=== PATIENT | female | born 1970 | race African-American/Black ===

== ENCOUNTER 2018-08-03 15:40 | Emergency (ER) | payer MEDICAID, OTHER ==
[~2018-08-03] VITALS: Ht 170.2 cm; Wt 134.7 kg
[~2018-08-03 15:40] MED LIST: ACETAMINOPHEN-1 EAC1 ORAL; CYCLOBENZAPRINE10 MG ORAL; NITROFURANTOIN100 M2 ORAL
[2018-08-03] MEDS ORDERED: METFORMIN HCL500 M4 ORAL (15:50)
[2018-08-03] MEDS ORDERED: GLIMEPIRIDE2 MG ORAL (15:50)
--- NOTE | 2018-08-03 16:13 | NUR ---
ED Nurse Note: Pt has been having dorsal neck pain that radiates upward x 10 days. Pain 7/10 catalina. No recent injury. Aox4, VSS catalina. Will cont to monitor.
[2018-08-03 16:15] VITALS: BP 131/79
--- NOTE | 2018-08-03 16:26 | Emergency Room Report ---
History of Present Illness General Chief Complaint: Headache Source: Patient Present Illness HPI 48-year-old female patient presents ER complaining of left-sided neck pain the past 3 days. Contrary to triage note, patient not complaining of headache for the past 10 days. Patient denies acute injury or trauma however states that she "thinks" she slept wrong. Reports pain worse with movement. Reports that she normally sleeps on her belly and on her side. Denies history of neck problems in the past. Denies fever, chest pain, shortness of breath. Denies headache. Denies pain radiating down the arms. Denies other aggravating factors. Denies photophobia or phonophobia. Patient currently being seen in the ER with her son who is being seen for different symptoms. Allergies: Coded Allergies: ACETAMINOPHEN (Unverified Allergy, Unknown, 07/20/14) CODEINE (Unverified Allergy, Unknown, 07/20/14) Patient History Past Medical History: see triage record : 5 Reviewed Nursing Documentation: PMH: Agreed; PSxH: Agreed Nursing Documentation-PMH Past Medical History: No History, Except For Hx Diabetes: Yes Review of Systems All Other Systems: negative except mentioned in HPI Physical Exam Vital Signs Date Time Temp Pulse Resp B/P (MAP) Pulse Ox O2 Delivery O2 Flow Rate FiO2 08/03/18 15:47 98.1 98 17 130/75 96 Room Air Sp02 EP Interpretation: reviewed, normal General Appearance: well appearing, no apparent distress, alert, GCS 15, non- toxic Head: normocephalic, atraumatic Eyes: bilateral eye normal inspection, bilateral eye PERRL ENT: hearing grossly normal, normal pharynx, no angioedema, normal voice, TMs + canals normal, uvula midline, moist mucus membranes Neck: full range of motion, no bony tend - No bony step-off, tender lateral Respiratory: lungs clear, normal breath sounds, no rhonchi, no respiratory distress, no accessory muscle use, no wheezing, speaking full sentences Cardiovascular #1: regular rate, rhythm, no edema Cardiovascular #2: 2+ radial (R), 2+ radial (L) Gastrointestinal: non tender, soft, no mass, non-distended, no guarding, no rebound Musculoskeletal: back normal, digits/nails normal, gait/station normal, normal range of motion, non-tender Neurologic: alert, oriented x3, responsive, silverer III-XII nml as tested, motor strength/tone normal, sensory intact, cerebellar normal, normal gait, speech normal Skin: no rash Medical Decision Making PA Attestation Dr. Gallo is my supervising Physician whom patient management has been discussed with. Diagnostic Impression: Primary Impression: Neck sprain ER Course Pt. presents to the ED c/o neck pain times 3 days. Ddx considered but are not limited to fracture, sprain, strain, contusion, dislocation. No erythema, no warmth to touch, no fever, nontoxic appearing, low suspicion for septic joint. Soft compartments, no pulselessness, no pallor, no paresthesias, low suspicion for compartment syndrome at this time. No fever, no meningismus, low suspicion for meningitis. Vital signs: are WNL, pt. is afebrile Ordered X-ray and pain medication. ER COURSE Provided with pain medication, muscle relaxant lidocaine patch. Offered x-ray and/or CT of neck, patient declined. Patient instructed on RICE method: rest, ice, compression, elevation. Patient instructed on rest, ice and heat. Contact information for orthopedic urgent care provided, follow-up with urgent care if unable to followup with primary care provider and get referral to phlebotomy specialist. Followup with primary care provider. Discuss referral to ortho/pain management/ PT as needed. Discuss further imaging with MRI/CT as needed. Patient reports pain symptoms improved while in the ER. ER precautions given. DISCHARGE: At this time pt. is stable for d/c to home. Patient is resting comfortably, in no acute distress, nontoxic appearing, talking without difficulty. Will provide printed patient care instructions, and any necessary prescriptions. Patient instructed to follow with primary care provider in 3 - 5 days and to request further follow-up as needed. Care plan and follow up instructions have been discussed with the patient prior to discharge. Take medications as directed. Patient questions asked and answered. Patient reports understanding and agreement to treatment plan. ER precautions given, patient instructed to return to ER immediately for any new or worsening of symptoms. - Please note that this Emergency Department Report was dictated using [employer] technology software, occasionally this can lead to erroneous entry secondary to interpretation by the dictation equipment. Last Vital Signs Date Time Temp Pulse Resp B/P (MAP) Pulse Ox O2 Delivery O2 Flow Rate FiO2 08/03/18 16:15 98.1 79 20 131/79 96 Room Air Status: improved Disposition: HOME, SELF-CARE Condition: Stable Scripts Methocarbamol* (ROBAXIN*) 500 Mg Tablet 500 MG PO TID, #21 TAB 0 Refills Prov: Rl Velazquez 08/03/18 Ibuprofen* (MOTRIN*) 600 Mg Tablet 600 MG ORAL Q8H PRN for For Pain, #30 TAB 0 Refills Prov: Rl Velazquez 08/03/18 Lidocaine (Lidocaine) 1 Each Adh..patch 5 % TP DAILY for 7 Days, #7 PATCH Prov: Rl Velazquez 08/03/18 Patient Instructions: Cervical Sprain, [id number] Additional Instructions: Patient instructed to follow up with primary care provider 3-5 and discuss further referral and imaging at that time. Patient instructed on rest, ice and heat. Do not take muscle relaxant prior to drinking, driving, or operating heavy machinery. Take medications as directed. Patient questions asked and answered. ER precautions given, patient instructed to return to ER immediately for any new or worsening of symptoms. [facility] [address] [facility] [address] [facility], [id number] [email or web address] Rl Velazquez Aug 03, 2018 16:26
[2018-08-03] MEDS ORDERED: Methocarbamol 500mg tab ORAL ONE (16:30)
[2018-08-03] MEDS ORDERED: ROBAXIN500 MG PO (17:08)
[2018-08-03] MEDS ORDERED: IBUPROFEN600 MG ORAL (17:08)
[2018-08-03] MEDS ORDERED: LIDOCAINE700 M1 TP (17:08)
[2018-08-03 17:15] VITALS: BP 131/79
--- NOTE | 2018-08-03 17:15 | NUR ---
ER DISCHARGE NOTE: Patient is cleared to be discharged per ERMD, pt is aox4, on room air, with stable vital signs. pt was given dc and prescription instructions, pt was able to verbalize understanding, pt id band removed without complications. pt is able to ambulate with steady gait. pt took all belongings.
--- NOTE | 2018-08-03 17:16 | NUR ---
ED Nurse Note: patient is in room 9 staying with her family member.
== END 2018-08-03 17:15 | disposition home or self-care (01) ==
LOC: EMR 16:25
DX: S13.9XXA Sprain of joints and ligaments of unspecified parts of neck, initial encounter (principal); X58.XXXA Exposure to other specified factors, initial encounter; Y92.9 Unspecified place or not applicable; E11.9 Type 2 diabetes mellitus without complications; Z88.6 Allergy status to analgesic agent; Z88.5 Allergy status to narcotic agent
CPT/HCPCS: 99283

== ENCOUNTER 2018-09-17 22:08 | Emergency (ER) | payer OTHER ==
[~2018-09-17] VITALS: Ht 170.2 cm; Wt 134.7 kg
[~2018-09-17 22:08] MED LIST changes: +GLIMEPIRIDE2 MG ORAL; +IBUPROFEN600 MG ORAL; +LIDOCAINE700 M1 TP; +METFORMIN HCL500 M4 ORAL; +ROBAXIN500 MG PO
[2018-09-17 22:12] VITALS: BP 163/76
[2018-09-17] MEDS ORDERED: OMEGA-31000 M1 PO (22:19)
[2018-09-17] MEDS ORDERED: LOSARTAN POTASS25 MG ORAL (22:19)
--- NOTE | 2018-09-17 22:35 | Emergency Room Report ---
History of Present Illness General Chief Complaint: Lower Extremity Injury Source: Patient Present Illness HPI This is a 48-year-old female with a history of diabetes. She presents with chief complaint of left foot pain and swelling. Onset for about a week. Pain is on the dorsum of the foot. There is edema and redness. No fever chills but no nausea no vomiting. A week prior to this, she had same thing according to her right foot. Now it moved to the left foot. Pain is 9 out of 10. Worse with bearing weight. Allergies: Coded Allergies: CODEINE (Unverified Allergy, Unknown, 07/20/14) Patient History Past Medical History: see triage record, old chart reviewed, DM Past Surgical History: other Pertinent Family History: none Social History: Denies: smoking Now: No Immunizations: other Reviewed Nursing Documentation: PMH: Agreed; PSxH: Agreed Nursing Documentation-PMH Hx Diabetes: Yes Review of Systems Eye: Denies: eye pain, blurred vision ENT: Denies: ear pain, nose congestion, throat swelling Respiratory: Denies: cough, shortness of breath Cardiovascular: Denies: chest pain, palpitations Gastrointestinal: Denies: abdominal pain, diarrhea, nausea, vomiting Musculoskeletal: Reports: joint pain, joint swelling; Denies: back pain Skin: Denies: rash Neurological: Denies: headache, numbness Endocrine: Denies: increased thirst, increased urine Hematologic/Lymphatic: Denies: easy bruising All Other Systems: negative except mentioned in HPI Physical Exam Vital Signs Date Time Temp Pulse Resp B/P (MAP) Pulse Ox O2 Delivery O2 Flow Rate FiO2 09/17/18 22:12 98.2 102 20 95 Room Air vitals normal Sp02 EP Interpretation: reviewed, normal General Appearance: well appearing, no apparent distress, alert Head: normocephalic, atraumatic Eyes: bilateral eye PERRL, bilateral eye EOMI ENT: hearing grossly normal, normal pharynx Neck: full range of motion, supple, no meningismus Respiratory: chest non-tender, lungs clear, normal breath sounds Cardiovascular #1: regular rate, rhythm, no murmur Gastrointestinal: normal bowel sounds, non tender, no mass, no organomegaly, no bruit, non-distended Musculoskeletal: back normal, normal range of motion, other - Left foot: There is tenderness and edema to the base of the fifth metatarsal bone. There is some mild warmth and redness to that area. This was pedis pulse is normal. Ankle stable. Psychiatric: mood/affect normal Skin: warm/dry Medical Decision Making Diagnostic Impression: Primary Impression: Gouty arthritis of left foot Additional Impression: Hyperglycemia due to type 2 diabetes mellitus Qualified Codes: E11.65 - Type 2 diabetes mellitus with hyperglycemia ER Course Patient presents with pain and inflammation of her left foot. Uric acid is elevated. This is probably gouty arthritis. No evidence of septic joint. No evidence of cellulitis. Glucose is elevated. She said that her hemoglobin A1c is 7.9 on last check. It has been as high as 11. Other X-Ray Diagnostic Results Other X-Ray Diagnostic Results : X-Ray ordered: Left foot x-rays # of Views/Limited Vs Complete: 3 View Indication: Pain EP Interpretation: Yes Interpretation: no dislocation, no soft tissue swelling, no fractures Impression: No acute disease Electronically Signed by: Erick Saxena MD Last Vital Signs Date Time Temp Pulse Resp B/P (MAP) Pulse Ox O2 Delivery O2 Flow Rate FiO2 09/17/18 22:12 98.2 102 20 95 Room Air Status: improved Disposition: HOME, SELF-CARE Condition: Stable Scripts Indomethacin (Indocin) 75 Mg Capsule.er 75 MG ORAL Q8HR, #30 CAP Prov: Erick Saxena MD 09/18/18 Hydrocodone/Acetaminophen 5-325* (HYDROCODONE/ACETAMINOPHEN 5-325*) 1 Each Tablet 1 TAB ORAL Q6H PRN for For Pain, #20 TAB 0 Refills Prov: Erick Saxena MD 09/18/18 Additional Instructions: Elevate foot. Follow-up with your doctor in 7 days. Take your diabetes medication. Return if symptom worsen. Erick Saxena MD September 17, 2018 22:35
[2018-09-17] MEDS ORDERED: Morphine Sulfate 4mg/ml Inj (IV USE ONLY) IVP ONE (22:45)
[2018-09-17] MEDS ORDERED: HYDROcodone/Acetamin 5/325 tab ORAL ONE (22:45)
[2018-09-17] MEDS ORDERED: Ketorolac 30mg Inj IV ONE (22:45)
[2018-09-17 23:25] LABS: BASOPHILS % (AUTO) 1.1 % (0.0-2.0); EOSINOPHILS % (AUTO) 3.7 % (0.0-3.0); HEMATOCRIT 37.7 % (37.0-47.0); HEMOGLOBIN 12.6 G/DL (12.0-16.0); LYMPHOCYTES % (AUTO) 20.6 % (20.0-45.0); MEAN CORPUSCULAR VOLUME 87 FL (80-99); MONOCYTES % (AUTO) 4.4 % (1.0-10.0); NEUTROPHILS % (AUTO) 70.2 % (45.0-75.0); PLATELET COUNT 277 K/UL (150-450); RED BLOOD COUNT 4.33 M/UL (4.20-5.40); RED CELL DISTRIBUTION WIDTH 11.4 % (11.6-14.8); WHITE BLOOD COUNT 7.8 K/UL (4.8-10.8)
[2018-09-17 23:42] LABS: ANION GAP 12 mmol/L (5-15); BLOOD UREA NITROGEN 21 mg/dL (7-18); CALCIUM 9.3 MG/DL (8.5-10.1); CARBON DIOXIDE 25 MMOL/L (21-32); CHLORIDE 100 MMOL/L (98-107); CREATININE 1.6 MG/DL (0.55-1.30); POTASSIUM 3.9 MMOL/L (3.5-5.1); SODIUM 137 MMOL/L (136-145)
[2018-09-18] MEDS ORDERED: Insulin Human Regular 100units/ml 3ml IV ONE
[2018-09-18] MEDS ORDERED: INDOCIN75 MG ORAL (00:13)
[2018-09-18] MEDS ORDERED: HYDROCODON-ACE1 EA15 ORAL (00:13)
--- NOTE | 2018-09-18 14:57 | Diagnostic Imaging Report ---
Indication: Left foot pain Technique: 3 views left foot Comparison: none Findings: No acute fractures. No dislocations. The joint spaces are preserved. There are small plantar and calcaneal spurs. Impression: No acute process
== END 2018-09-18 00:53 | disposition home or self-care (01) ==
LOC: EMR 22:51
DX: M10.9 Gout, unspecified (principal); E11.65 Type 2 diabetes mellitus with hyperglycemia; Z88.6 Allergy status to analgesic agent
CPT/HCPCS: 36415; 73630; 80048; 82962; 84550; 85025; 96374; 96375; 99284; J1815; J1885; J2270

== ENCOUNTER 2019-04-30 16:28 | Inpatient (IN) | payer OTHER ==
[~2019-04-30] VITALS: Ht 170.2 cm; Wt 127.0 kg
[~2019-04-30 16:28] MED LIST changes: +HYDROCODON-ACE1 EA15 ORAL; +INDOCIN75 MG ORAL; +LOSARTAN POTASS25 MG ORAL; +OMEGA-31000 M1 PO
--- NOTE | 2019-04-30 16:36 | NUR ---
ED Nurse Note: Patient arrived to ED from home complaining of flu-like s/s x 1 week. Patient states she has not eaten for 3 days d/t no appetite. Patient has has a productive cough, n/v, and diarrhea. Patient AxO x 4. Patient on the lithograph designer, bed in lowest position. Skin intact. Blood and urine sent to lab.
[2019-04-30 16:40] VITALS: BP 84/58
--- NOTE | 2019-04-30 16:53 | Emergency Room Report ---
History of Present Illness General Chief Complaint: Generalized Weakness Source: Patient Present Illness HPI Disclaimer: Please note that this report is being documented using [employer] technology. This can lead to erroneous entry secondary to incorrect interpretation by the dictating instrument. HPI: 48-year-old female with history of diabetes, obesity, hyperlipidemia presents for evaluation of generalized weakness. She notes several weeks of decreased energy, nonproductive cough ever since returning from [place] in late March. She reported a cough and cold which she recovered from about a week ago but over the past 2 days has had persistent watery diarrhea and nonbloody emesis. She has no appetite and reports intermittent nausea. Occasional nonproductive cough. Reports chest pain with coughing but not without. Patient found to be hypotensive in triage. She reports lightheadedness at rest and while ambulating PMH: Obesity, hyperlipidemia, diabetes PSH: Denies Allergies: Codeine Social Hx: Denies alcohol, drug use Allergies: Coded Allergies: CODEINE (Unverified Allergy, Unknown, 07/20/14) Nursing Documentation-PMH Past Medical History: No History, Except For Hx Diabetes: Yes Review of Systems All Other Systems: negative except mentioned in HPI Physical Exam Vital Signs Date Time Temp Pulse Resp B/P (MAP) Pulse Ox O2 Delivery O2 Flow Rate FiO2 04/30/19 16:33 99.7 112 18 84/58 (67) 97 Room Air General: Awake and alert, no acute distress HEENT: NC/AT. EOMI. Neck: Supple, trachea midline Chest Wall: Tender to palpation with no deformity Cardiovascular: Tachycardic. S1 and S2 normal. No murmur appreciated Resp: Normal work of breathing. No cough, wheezing or crackles appreciated Abdomen: Morbidly obese abdomen. Abdomen is soft, nondistended. Nontender Skin: Intact. No abrasions, laceration or rash over the exposed skin MSK: Normal tone and bulk. Moving all extremities. No obvious deformity. Neuro: Awake and alert. Mentating appropriately. Procedures Critical Care Time Critical Care Time Total critical care time: Approximately 45 minutes Due to a high probability of clinically significant, life threatening deterioration, the patient required the highest level of preparedness to intervene emergently and I personally spent this critical care time directly and personally managing the patient. This critical care time included obtaining a history, examining the patient, pulse oximetry, ordering and reviewing studies , ordering treatments, evaluating response to treatment and updating management plan as needed, frequent reassessment and discussion with other providers as well as arranging for ultimate disposition. This critical to care time was performed to assess and manage the high probability of life-threatening deterioration that could result in multiorgan failure. This critical care time is separate from the separately billable procedures and treating other patients. Medical Decision Making Diagnostic Impression: Primary Impression: Dehydration Additional Impressions: Influenza B ENDY (acute kidney injury) Sepsis UTI (urinary tract infection) ER Course 48-year-old female presents for evaluation of generalized weakness, cough, diarrhea and vomiting. She was found hypotensive in triage with systolic pressures in the 80s. She is tachycardic and on second oral temperature she is febrile. Differential includes was not limited to sepsis, viral syndrome, pneumonia, gastroenteritis, hyperglycemia, electrolyte abnormality, anemia, ACS , malnutrition, DKA, HHS. Start broad metabolic and infectious work-up. Start IV fluids at 30 cc/kg, lactate, blood cultures, EKG, chest x-ray Laboratory Tests Test 04/30/19 17:00 04/30/19 17:50 04/30/19 20:07 White Blood Count 3.1 K/UL (4.8-10.8) L Red Blood Count 4.89 M/UL (4.20-5.40) Hemoglobin 14.9 G/DL (12.0-16.0) Hematocrit 40.9 % (37.0-47.0) Mean Corpuscular Volume 84 FL (80-99) Mean Corpuscular Hemoglobin 30.5 PG (27.0-31.0) Mean Corpuscular Hemoglobin Concent 36.5 G/DL (32.0-36.0) H Red Cell Distribution Width 9.9 % (11.6-14.8) L Platelet Count 224 K/UL (150-450) Mean Platelet Volume 6.8 FL (6.5-10.1) Neutrophils (%) (Auto) 58.8 % (45.0-75.0) Lymphocytes (%) (Auto) 31.4 % (20.0-45.0) Monocytes (%) (Auto) 7.8 % (1.0-10.0) Eosinophils (%) (Auto) 0.3 % (0.0-3.0) Basophils (%) (Auto) 1.8 % (0.0-2.0) Sodium Level 136 MMOL/L (136-145) Potassium Level 4.5 MMOL/L (3.5-5.1) Chloride Level 99 MMOL/L (98-107) Carbon Dioxide Level 22 MMOL/L (21-32) Anion Gap 15 mmol/L (5-15) Blood Urea Nitrogen 37 mg/dL (7-18) H Creatinine 2.8 MG/DL (0.55-1.30) H Estimate Glomerular Filtration Rate 21.7 mL/min (>60) Glucose Level 339 MG/DL (74-106) H Lactic Acid Level 2.20 mmol/L (0.4-2.0) H 0.90 mmol/L (0.66-2.22) Calcium Level 8.7 MG/DL (8.5-10.1) Total Bilirubin 0.5 MG/DL (0.2-1.0) Aspartate Amino Transferase (AST) 27 U/L (15-37) Alanine Aminotransferase (ALT) 27 U/L (12-78) Alkaline Phosphatase 77 U/L (46-116) Total Creatine Kinase 129 U/L (26-308) Troponin I 0.005 ng/mL (0.000-0.056) Total Protein 8.7 G/DL (6.4-8.2) H Albumin 3.6 G/DL (3.4-5.0) Globulin 5.1 g/dL Albumin/Globulin Ratio 0.7 (1.0-2.7) L Urine Color Yellow Urine Appearance Cloudy Urine pH 5 (4.5-8.0) Urine Specific [place] 1.015 (1.005-1.035) Urine Protein 3+ (NEGATIVE) H Urine Glucose (UA) 4+ (NEGATIVE) H Urine Ketones Negative (NEGATIVE) Urine Blood 2+ (NEGATIVE) H Urine Nitrite Negative (NEGATIVE) Urine Bilirubin Negative (NEGATIVE) Urine Urobilinogen Normal MG/DL (0.0-1.0) Urine Leukocyte Esterase 2+ (NEGATIVE) H Urine RBC 2-4 /HPF (0 - 2) H Urine WBC Tntc /HPF (0 - 2) H Urine Squamous Epithelial Cells Many /LPF (NONE/OCC) H Urine Bacteria Many /HPF (NONE) H Microbiology Date/Time Source Procedure Growth Status 04/30/19 17:15 Nasal Nares - Final Complete 04/30/19 17:15 Nasal Nares - Final Complete EKG Diagnostic Results EKG Time: 16:54 Rate: normal Rhythm: NSR ST Segments: no acute changes Other Impression Sinus rhythm, normal axis, normal intervals, no ST segment changes Rhythm Strip Diag. Results Rhythm Strip Time: 16:54 EP Interpretation: yes Rate: 99 Rhythm: NSR, no PVC's, no ectopy Chest X-Ray Diagnostic Results Chest X-Ray Diagnostic Results : Chest X-Ray Ordered: Yes # of Views/Limited/Complete: 1 View Indication: Other - Cough EP Interpretation: Yes Interpretation: no consolidation, no effusion, no pneumothorax Impression: No acute disease Electronically Signed by: Electronically signed by Dr. Robbin Sarah Reevaluation Time: 17:51 Last Vital Signs Date Time Temp Pulse Resp B/P (MAP) Pulse Ox O2 Delivery O2 Flow Rate FiO2 04/30/19 16:33 99.7 112 18 84/58 (67) 97 Room Air Reevaluation Impression X-ray is somewhat difficult to interpret due to the patient's body habitus but I do not find any obvious consolidation. Patient's blood pressures are improving with IV fluids. Heart rate now within normal limits. She has tested positive for influenza B. Tylenol and oseltamavir have been given. She has a leukopenia and an acute kidney injury with an elevated creatinine of 2.8. Lactate elevated at 2.2. Receiving her sepsis level fluids currently. Repeat lactate pending. Will require admission. 191: Urinalysis is returned positive for an acute infection. Will treat with ceftriaxone. Awaiting approval for admission per her insurance plan. Vital signs of stabilized. Disposition: ADMITTED INPATIENT Condition: Serious Robbin Sarah MD Apr 30, 2019 16:53
[2019-04-30] MEDS ORDERED: SODIUM CHLORIDE IVLG ONE (17:15)
[2019-04-30 17:20] VITALS: BP 77/54
[2019-04-30 17:20] LABS: HEMATOCRIT 40.9 % (37.0-47.0); HEMOGLOBIN 14.9 G/DL (12.0-16.0); MEAN CORPUSCULAR VOLUME 84 FL (80-99); PLATELET COUNT 224 K/UL (150-450); RED BLOOD COUNT 4.89 M/UL (4.20-5.40); RED CELL DISTRIBUTION WIDTH 9.9 % (11.6-14.8); WHITE BLOOD COUNT 3.1 K/UL (4.8-10.8)
--- NOTE | 2019-04-30 17:24 | Diagnostic Imaging Report ---
EXAM: XR Chest, 1 View CLINICAL HISTORY: COUGH TECHNIQUE: Frontal view of the chest. COMPARISON: No relevant prior studies available. FINDINGS: Lungs: Accentuation of bronchovascular markings. No confluent consolidation. Pleural space: Unremarkable. No pneumothorax. Heart: Mild cardiomegaly. Mediastinum: Unremarkable. Bones/joints: No acute fracture. IMPRESSION: Accentuation of bronchovascular markings.
[2019-04-30 17:30] LABS: BASOPHILS % (AUTO) 1.8 % (0.0-2.0); EOSINOPHILS % (AUTO) 0.3 % (0.0-3.0); LYMPHOCYTES % (AUTO) 31.4 % (20.0-45.0); MONOCYTES % (AUTO) 7.8 % (1.0-10.0); NEUTROPHILS % (AUTO) 58.8 % (45.0-75.0)
[2019-04-30] MEDS ORDERED: Acetaminophen 500mg (ES) tab ORAL ONE (17:30)
[2019-04-30 17:37] LABS: ANION GAP 15 mmol/L (5-15); BLOOD UREA NITROGEN 37 mg/dL (7-18); CALCIUM 8.7 MG/DL (8.5-10.1); CARBON DIOXIDE 22 MMOL/L (21-32); CHLORIDE 99 MMOL/L (98-107); CREATININE 2.8 MG/DL (0.55-1.30); POTASSIUM 4.5 MMOL/L (3.5-5.1); SODIUM 136 MMOL/L (136-145)
[2019-04-30 17:41] LABS: ALANINE AMINOTRANSFERASE 27 U/L (12-78); ALBUMIN 3.6 G/DL (3.4-5.0); ALBUMIN/GLOBULIN RATIO 0.7 (1.0-2.7); ALKALINE PHOSPHATASE 77 U/L (46-116); ASPARTATE AMINO TRANSFERASE 27 U/L (15-37); BILIRUBIN,TOTAL 0.5 MG/DL (0.2-1.0); CREATINE KINASE 129 U/L (26-308)
[2019-04-30 18:00] VITALS: BP 102/68
[2019-04-30] MEDS ORDERED: Oseltamivir 75mg cap ORAL ONE (18:00)
--- NOTE | 2019-04-30 18:00 | NUR ---
ED Nurse Note: Patient resting in bed. Dr. Sarah at bedside. Fluids infusing, as ordered. Patient states she feels a little better than when she arrived.
[2019-04-30 18:51] LABS: APPEARANCE,URINE CLOUDY; BILIRUBIN, URINE NEGATIVE (NEGATIVE); COLOR,URINE YELLOW; GLUCOSE, URINE (UA) 4+ (NEGATIVE); KETONES,URINE NEGATIVE (NEGATIVE); LEUKOCYTE ESTERASE ,URINE 2+ (NEGATIVE); NITRITE,URINE NEGATIVE (NEGATIVE); PH,URINE 5 (4.5-8.0); PROTEIN,URINE 3+ (NEGATIVE); UROBILINOGEN,URINE NORMAL MG/DL (0.0-1.0)
--- NOTE | 2019-04-30 19:02 | NUR ---
HAND-OFF: Report given to Oneida MESSINA.
[2019-04-30 19:29] VITALS: BP 108/68
[2019-04-30] MEDS ORDERED: cefTRIAXone 1 GM in NS 55 ML IVPB ONE (19:30)
--- NOTE | 2019-04-30 20:19 | NUR ---
ER Nurse Note: Pt stable, no signs of distress, RA. Pt oral temp 98.3F. Pt denies pain, dizziness, cough. Pt ambulated with steady gait to restroom, no difficulty voiding. Pt VSS. All orders completed per ERMD orders. Repeat lactate drawn and sent to lab; awaiting results. Report given to MAYURI Liu for continutiy of care.
[2019-04-30 21:00] VITALS: BP 110/72
--- NOTE | 2019-04-30 21:00 | NUR ---
ER Nurse Note: Pt arrived on tele unit. All belongings taken with family. Per pt, her belongings will be taken daughter at bedside. MAYURI Liu aware.
[2019-04-30 22:00] VITALS: BP 105/72
--- NOTE | 2019-04-30 22:00 | NUR ---
NURSE NOTES: Pt arrived on unit via gurney from ER. Got report from Oneida MESSINA. Denies any pain. Denies any n/v or SOB. Pt is fully alert and able to answer all of my questions. Pt is ambulatory but says she is still weak. No skin issues noted. VSS T:98.4 HR:78 R:18 BP:105/72 O2:96% on room air. cardiac monitor placed on pt running Sinus Rhythm on the monitor. Belongings list verified. Pt resting in bed comfortably. Bed in low and locked position, call light within reach, bedside table within reach. Continue to monitor. Orders given and placed by Dr. Green.
[2019-05-01] VITALS: BP 105/62
[2019-05-01 04:00] VITALS: BP 103/90
--- NOTE | 2019-05-01 07:10 | NUR ---
NURSE NOTES: Report received from MAYURI Zapata. Patient AOx4. In RA. Denies any pain or SOB. L H 20g IV running NS @ 100, site intact. Bed on lowest position, side rails upx2, brakes engaged. Call light within easy reach. Family at bed side.
--- NOTE | 2019-05-01 07:10 | NUR ---
HAND-OFF: Report given to Suzanna MESSINA.
[2019-05-01 08:00] VITALS: BP 110/68
[2019-05-01 08:48] LABS: HEMATOCRIT 37.1 % (37.0-47.0); HEMOGLOBIN 12.5 G/DL (12.0-16.0); MEAN CORPUSCULAR VOLUME 89 FL (80-99); PLATELET COUNT 158 K/UL (150-450); RED BLOOD COUNT 4.16 M/UL (4.20-5.40); RED CELL DISTRIBUTION WIDTH 11.2 % (11.6-14.8); WHITE BLOOD COUNT 2.2 K/UL (4.8-10.8)
[2019-05-01] MEDS: Cefepime HCl 1 GM in D5W 55 ML IVPB SCH (09:04)
[2019-05-01 09:22] LABS: ANION GAP 10 mmol/L (5-15); BLOOD UREA NITROGEN 34 mg/dL (7-18); CARBON DIOXIDE 24 MMOL/L (21-32); CHLORIDE 109 MMOL/L (98-107); CREATININE 1.7 MG/DL (0.55-1.30); POTASSIUM 4.2 MMOL/L (3.5-5.1); SODIUM 142 MMOL/L (136-145)
[2019-05-01 12:00] VITALS: BP 114/59
--- NOTE | 2019-05-01 13:52 | NUR ---
CASE MANAGEMENT: INITIAL REVIEW 48 YO F PRESENTED FROM HOME CC: COUGH, GEN WEAKNESS, CHEST CONGESTION, BACK PAIN X 3 WEEKS. PMHx: diabetes, obesity, hyperlipidemia presents for evaluation of generalized weakness. SI:HYPOTENSION. T 99.7 HR 112 B/P 84/58 SATS 97% ON RA WBC 3.1 BUN 37 CR 2.8 LACTIC ACID 2.2 influenza B (+) IS: NS BOLUS X2 TYLENOL PO X1 TAMIFLU PO X1 EKG HR 99 Sinus rhythm, normal axis, normal intervals, no ST segment changes CXR Impression: No acute disease PATIENT ADMITTED TO TELE 04/30/2019 @ 1810 DCP: PATIENT TO BE DISCHARGED TO HOME ONCE MEDICALLY CLEARED. 05/01/2019 SI:HYPOTENSION. T 98.1 HR 87 RR 18 B/P 114/59 SATS 96% ON RA WBC 2.2 CL 109 BUN 34 CR 1.7 GLU 147 CA 8 IS: NS @ 100 mL/HR TAMIFLU PO BID CEFEPIME IV QD TELE STATUS DCP: PATIENT TO BE DISCHARGED TO HOME ONCE MEDICALLY CLEARED. Addendum: 05/01/19 at 1632 by Henna Ruiz CM INTERMARVINAL
[2019-05-01 16:00] VITALS: BP 97/67
--- NOTE | 2019-05-01 19:45 | NUR ---
NURSE NOTES: Received report from MAYURI Briseno. Patient is awake, lying in semi hahn's; resting comfortably. A/Ox4. Able to make needs known with assistance. Denies pain at this time. No signs of acute distress noted. Checked IV site and flushed with ongoing IV fluid NS @ 100mls/hr. No erythema, bleeding or infiltration noted. Bed at lowest position, brakes on, siderailsx2. Call light within reach. Will continue to monitor.
--- NOTE | 2019-05-01 19:54 | NUR ---
HAND-OFF: Report given to MAYURI Aguillon. Patient in stable condition. Plan of care endorsed.
[2019-05-01 20:00] VITALS: BP 120/69
--- NOTE | 2019-05-01 20:15 | History and Physical Report ---
DATE OF ADMISSION: 04/30/2019 HISTORY OF PRESENT ILLNESS: The patient is a 48-year-old female admitted to the emergency room. The patient with history of diabetes, presents with generalized weakness, reduced energy, and a productive cough. The patient also reports chest pain with coughing and discomfort. The patient is seen and evaluated in the emergency room and noted to have evidence of leukopenia with x-ray essentially negative overall. The patient was admitted for further care and management. PAST MEDICAL HISTORY: Hyperlipidemia and diabetes. MEDICATIONS: Reviewed. ALLERGIES: Reviewed. SOCIAL HISTORY: Denies any alcohol use. Denies smoking. PHYSICAL EXAMINATION: GENERAL: A well-developed female, in no significant distress. VITAL SIGNS: Reviewed. Currently stable and off oxygen. Initially hypotensive. LUNGS: Clear. CARDIAC: S1, S2. Regular rate and rhythm. Initially was tachycardic. ABDOMEN: Soft, nontender, and nondistended. EXTREMITIES: No edema. LABORATORY DATA: Reviewed and notable for the leukopenia as described. IMPRESSION: 1. Dehydration. 2. Urinary tract infection. 3. History of diabetes. RECOMMENDATIONS: 1. IV hydration. 2. IV antibiotics. 3. Follow up cultures. 4. Consider ID evaluation. 5. Physical therapy evaluation. 6. Monitor white cell count for changes. 7. Consider hematological evaluation and white cell count if abnormality persists and discharge once stable. [place] M.D. DR: CHRISTOPHER JOB#: [id number] CC:
[2019-05-02] VITALS: BP 108/55
--- NOTE | 2019-05-02 00:42 | NUR ---
NURSE NOTES: Paged Dr. Green, for insulin sliding scale. Awaiting for callback.
--- NOTE | 2019-05-02 01:18 | NUR ---
NURSE NOTES: Resting throughout the night. No significant change of condition noted. Will continue to monitor.
[2019-05-02 04:00] VITALS: BP 122/59
--- NOTE | 2019-05-02 06:30 | NUR ---
NURSE NOTES: Paged Dr. Green for insulin sliding scale. Awaiting for callback.
--- NOTE | 2019-05-02 07:05 | NUR ---
NURSE NOTES: Per Dr. Green, insulin sliding scale resistant, pt eval, ID consult Dr. Aguilar. Noted and carried out.
--- NOTE | 2019-05-02 07:10 | NUR ---
HAND-OFF: Report given to MAYURI Briseno. Plan of care endorsed.
--- NOTE | 2019-05-02 07:15 | NUR ---
NURSE NOTES: Report received from MAYURI Aguillon. In RA. Denies any pain or SOB. L hand 20g IV running NS @ 100mL/hr. Bed on lowest position, side rails upx2, brakes engaged. Call light within easy reach.
[2019-05-02 08:00] VITALS: BP 119/71
[2019-05-02 08:09] LABS: HEMATOCRIT 36.5 % (37.0-47.0); HEMOGLOBIN 12.4 G/DL (12.0-16.0); MEAN CORPUSCULAR VOLUME 88 FL (80-99); PLATELET COUNT 160 K/UL (150-450); RED BLOOD COUNT 4.14 M/UL (4.20-5.40); RED CELL DISTRIBUTION WIDTH 11.1 % (11.6-14.8); WHITE BLOOD COUNT 2.5 K/UL (4.8-10.8)
[2019-05-02] MEDS: Cefepime HCl 1 GM in D5W 55 ML IVPB SCH (09:14)
[2019-05-02] MEDS: NovoLOG Insulin Flexpen SUBQ SCH ×5 (09:15→20:07)
[2019-05-02] MEDS ORDERED: Vancomycin 500mg/D5W 110ml IVPB ONE ×2 (11:00)
--- NOTE | 2019-05-02 11:34 | General Progress Note ---
Assessment/Plan Assessment/Plan: influenza bacteremia UTI PLAN iv antibiotics tamiflu hydrate ID eval clearance pending Subjective Allergies: Coded Allergies: CODEINE (Unverified Allergy, Unknown, 07/20/14) Subjective care noted +bcx Objective Last 24 Hour Vital Signs Date Time Temp Pulse Resp B/P (MAP) Pulse Ox O2 Delivery O2 Flow Rate FiO2 05/02/19 08:00 98.1 78 18 119/71 (87) 96 05/02/19 04:00 97.8 78 18 122/59 (80) 100 05/02/19 04:00 79 05/02/19 00:00 98.5 91 18 108/55 (72) 100 05/02/19 00:00 91 05/01/19 21:00 Room Air 05/01/19 20:00 97.8 92 18 120/69 (86) 95 05/01/19 20:00 87 05/01/19 16:00 71 05/01/19 16:00 97.5 83 20 97/67 (77) 97 05/01/19 12:00 98.1 87 18 114/59 (77) 96 05/01/19 12:00 86 Intake and Output 05/01/19 05/02/19 19:00 07:00 Intake Total 460 ml 1270 ml Balance 460 ml 1270 ml Intake Oral 360 ml 120 ml IV Total 100 ml 1150 ml # Voids 3 1 Laboratory Tests 05/02/19 07:19: White Blood Count 2.5L, Red Blood Count 4.14L, Hemoglobin 12.4, Hematocrit 36.5L , Mean Corpuscular Volume 88, Mean Corpuscular Hemoglobin 30.0, Mean Corpuscular Hemoglobin Concent 34.0, Red Cell Distribution Width 11.1L, Platelet Count 160, Mean Platelet Volume 7.3, Neutrophils (%) (Auto) , Lymphocytes (%) (Auto) , Monocytes (%) (Auto) , Eosinophils (%) (Auto) , Basophils (%) (Auto) , Differential Total Cells Counted 100, Neutrophils % ( Manual) 35L, Lymphocytes % (Manual) 58H, Monocytes % (Manual) 5, Eosinophils % ( Manual) 2, Basophils % (Manual) 0, Band Neutrophils 0, Platelet Estimate Adequate, Platelet Morphology Normal, Red Blood Cell Morphology Normal Height (Feet): 5 Height (Inches): 7.00 Weight (Pounds): 280 Objective WDWN NAD clear breath sounds bilaterally without rhonchi or wheeze [id number] without MRG NABS nontender no HSM no CCE nonfocal El Green MD May 02, 2019 11:34
[2019-05-02 12:00] VITALS: BP 118/70
[2019-05-02] MEDS ORDERED: Vancomycin 1.5gm/NS Premix IVPB ONE (12:00)
[2019-05-02 16:00] VITALS: BP 113/71
--- NOTE | 2019-05-02 19:02 | NUR ---
HAND-OFF: Report given to MAYURI Peres. Patient in stable condition. Plan of care endorsed.
[2019-05-02 20:00] VITALS: BP 107/62
[2019-05-02] MEDS: Vancomycin 750mg/NS 275ml IVPB SCH ×2 (22:07)
[2019-05-03] VITALS: BP 109/64
--- NOTE | 2019-05-03 01:51 | NUR ---
NURSE NOTES: Resting throughout the night. No significant change of condition noted. Will continue to monitor.
[2019-05-03 04:00] VITALS: BP 109/66
[2019-05-03] MEDS: NovoLOG Insulin Flexpen SUBQ SCH ×4 (05:45→23:34)
--- NOTE | 2019-05-03 07:20 | NUR ---
HAND-OFF: Report given to MAYURI Prince. Plan of care endorsed.
--- NOTE | 2019-05-03 07:24 | NUR ---
NURSE NOTES: Report received from Henna MESSINA. Pt in bed awake and oriented 4 and able to make needs known. No c/o pain. No SOB noted. IV site in RFA 20G patent and asymptomatic running with NS @100ml/hr.On isolation for DROPLET DUE TO positive to influenza B. On room air. Bed rails x2 up for safety. Bed placed in lowest position and locked. Call light within easy reach. Will continue to plan of care.
[2019-05-03 08:00] VITALS: BP 124/90
--- NOTE | 2019-05-03 08:23 | General Progress Note ---
Assessment/Plan Assessment/Plan: influenza bacteremia UTI bcx staph species PLAN iv antibiotics ? contaminant tamiflu hydrate ID eval levaquin clearance pending Subjective Allergies: Coded Allergies: CODEINE (Unverified Allergy, Unknown, 07/20/14) Subjective care noted +bcx Objective Last 24 Hour Vital Signs Date Time Temp Pulse Resp B/P (MAP) Pulse Ox O2 Delivery O2 Flow Rate FiO2 05/03/19 04:00 76 05/03/19 04:00 99.0 73 17 109/66 (80) 95 05/03/19 00:00 98.2 99 19 109/64 (79) 96 05/03/19 00:00 80 05/02/19 21:00 Room Air 05/02/19 20:00 76 05/02/19 20:00 98.2 73 18 107/62 (77) 96 05/02/19 16:00 97.5 76 18 113/71 (85) 96 05/02/19 16:00 78 05/02/19 12:00 77 05/02/19 12:00 98.8 75 20 118/70 (86) 95 05/02/19 09:00 Room Air Intake and Output 05/02/19 05/03/19 19:00 07:00 Intake Total 220 ml 1431.94 ml Balance 220 ml 1431.94 ml Intake Oral 120 ml 120 ml IV Total 100 ml 1311.94 ml # Voids 3 1 Height (Feet): 5 Height (Inches): 7.00 Weight (Pounds): 280 Objective WDWN NAD clear breath sounds bilaterally without rhonchi or wheeze [id number] without MRG NABS nontender no HSM no CCE nonfocal El Green MD May 03, 2019 08:23
[2019-05-03] MEDS ORDERED: Levofloxacin 500mg tab ORAL SCH (08:30)
--- NOTE | 2019-05-03 09:10 | NUR ---
PT EVALUATION NOTE Patient seen for initial evaluation. Patient is independent with all functional mobility without an assistive device. Skilled inpatient PT intervention not warranted, patient discharged from PT, Min RN notified. Addendum: 05/03/19 at 1242 by ANGELICA SCHERER PT Amended: Links added.
[2019-05-03] MEDS: Vancomycin 750mg/NS 275ml IVPB SCH ×4 (11:19→23:25)
[2019-05-03 12:00] VITALS: BP 150/97
--- NOTE | 2019-05-03 12:26 | NUR ---
[employer] SI: HYPOTENSION T. 98.4 HR 82 RR 18 B/P 150/87 RA 98% IS: VANCO IV IVF NS @ 100ML/HR LEVAQUIN PO TELE STATUS
--- NOTE | 2019-05-03 15:00 | Consultation ---
DATE OF CONSULTATION: 05/03/2019 INFECTIOUS DISEASES CONSULTATION CONSULTING PHYSICIAN: César Aguilar M.D. REFERRING PHYSICIAN: El Green M.D. REASON FOR CONSULTATION: Possible pneumonia. HISTORY OF PRESENTING ILLNESS: This is a 48-year-old lady with history of diabetes, who came in with cough as well as pain on coughing. She denies any shortness of breath or fevers. She was found to have a urinary tract infection and an Infectious Diseases consultation has been obtained for antibiotics. PAST MEDICAL HISTORY: 1. History of diabetes. 2. Hyperlipidemia. SOCIAL HISTORY: She does not smoke, drink, or use drugs. FAMILY HISTORY: Noncontributory. REVIEW OF SYSTEMS: RESPIRATORY: No fever or chills. She has a cough. She does not have shortness of breath. She has pain on coughing. CARDIAC: No chest pain. No palpitations. No dizziness. No syncope. GASTROINTESTINAL: No nausea. No vomiting. No abdominal pain or diarrhea. MEDICATIONS: As an inpatient, she is on IV vancomycin, insulin, Tamiflu, Protonix, Tylenol, Mylanta. ALLERGIES: To codeine noted. PHYSICAL EXAMINATION: VITAL SIGNS: Temperature of 99, T-max of 99, pulse of 82, respiratory rate of 18, blood pressure 124/90, O2 saturation of 95%. HEENT: Pupils equally reactive to light and accommodation. Mouth appears clean without thrush. NECK: Supple. No adenopathy. No JVD. CARDIOVASCULAR: Regular rate and rhythm. No murmurs. LUNGS: Clear to auscultation bilaterally. No crackles. No wheezes. ABDOMEN: Soft and nontender. No organomegaly. EXTREMITIES: No cyanosis, no clubbing, no edema. LABORATORY AND DIAGNOSTIC DATA: White count 2.5, hemoglobin 12.4, hematocrit 36.5, MCV 88, platelet count of 160. Sodium 142, potassium 4.2, chloride 109, bicarb 24, BUN 34, creatinine 1.7, glucose 147, calcium of 8. Total bilirubin 0.5, AST 27, ALT 27, alkaline phosphatase 77. CK 129, troponin 0.005. Total protein 8.7, albumin 3.6. UA is showing too numerous to count white cells. Urine culture is growing Enterobacter that is susceptible to ceftriaxone, ciprofloxacin, imipenem, Levaquin, Bactrim. Blood culture is growing Staph species. Chest x-ray is showing accentuation of bronchovascular markings. influenza + ASSESSMENT: This is a 48-year-old lady with history of diabetes who comes in with cough and is found to have. 1. Enterobacter urinary tract infection. 2. She also has a Staph sepsis. 3. Diabetes. 4. influenza PLAN: 1. Continue IV vancomycin, tamiflu 2. We will order Levaquin. 3. We will follow up cultures and adjust antibiotics accordingly. I would like to thank, Dr. Green, for this consultation. César Aguilar M.D. DR: DONATO JOB#: [id number] CC: El Green M.D.; Fax#: [phone] [facility]
[2019-05-03 16:00] VITALS: BP 119/78
--- NOTE | 2019-05-03 19:21 | NUR ---
HAND-OFF: Report given to Lyubov RUSSELL Pt remains stable. Addendum: 05/03/19 at 1947 by Salinas Mac RN Report given to Raj RUSSELL Pt remains stable
--- NOTE | 2019-05-03 19:22 | NUR ---
NURSE NOTES: Pt received from Min, RN alert and oriented x4 with no acute s/s of distress noted. IV site asymptoamtic and patent on R fa 20g and L hand 20g, saline lock. Bed in lowest position, call light and belongings within reach.
[2019-05-03 20:00] VITALS: BP 141/71
[2019-05-04] VITALS: BP 136/77
[2019-05-04 04:00] VITALS: BP 137/72
[2019-05-04] MEDS: Vancomycin 750mg/NS 275ml IVPB SCH ×2 (06:22)
[2019-05-04] MEDS: NovoLOG Insulin Flexpen SUBQ SCH (06:25)
--- NOTE | 2019-05-04 07:10 | NUR ---
HAND-OFF: Report given to MAYURI Prince. Plan of care endorsed.
--- NOTE | 2019-05-04 07:12 | NUR ---
NURSE NOTES: Received report from Raj MESSINA. Pt alert and orientedx4 and able to make needs known. No c/o pain. Denied SOB. IV site in RFA 20G running with IV vancomycin patent and asymptomatic. Left hand 20G SL patent and asymptomatic. Call light within easy reach. Bed in lowest position and locked. Will continue to plan of care.
--- NOTE | 2019-05-04 07:20 | General Progress Note ---
Assessment/Plan Assessment/Plan: influenza bacteremia UTI bcx staph species PLAN iv antibiotics ? contaminant tamiflu hydrate ID eval levaquin clearance pending today Subjective Allergies: Coded Allergies: CODEINE (Unverified Allergy, Unknown, 07/20/14) Subjective care noted +bcx Objective Last 24 Hour Vital Signs Date Time Temp Pulse Resp B/P (MAP) Pulse Ox O2 Delivery O2 Flow Rate FiO2 05/04/19 04:00 65 05/04/19 04:00 97.8 72 19 137/72 (93) 96 05/04/19 00:00 97.9 75 19 136/77 (96) 97 05/04/19 00:00 69 05/03/19 21:00 Room Air 05/03/19 20:00 97.7 71 17 141/71 (94) 96 05/03/19 16:00 97.8 74 17 119/78 (92) 96 05/03/19 16:00 66 05/03/19 12:00 97.9 70 18 150/97 (114) 97 05/03/19 12:00 95 05/03/19 09:00 Room Air 05/03/19 08:00 80 05/03/19 08:00 98.4 82 18 124/90 (101) 95 Intake and Output 05/03/19 05/04/19 19:00 07:00 Intake Total 1300 ml 566.666 ml Balance 1300 ml 566.666 ml Intake Oral 200 ml IV Total 366.666 ml Other 1300 ml # Voids 3 Laboratory Tests 05/03/19 21:22: Vancomycin Level Trough 10.0 Height (Feet): 5 Height (Inches): 7.00 Weight (Pounds): 280 Objective WDWN NAD clear breath sounds bilaterally without rhonchi or wheeze [id number] without MRG NABS nontender no HSM no CCE nonfocal El Green MD May 04, 2019 07:20
[2019-05-04 08:00] VITALS: BP 138/90
--- NOTE | 2019-05-04 10:15 | Infectious Diseases Prog Note ---
Assessment/Plan Assessment/Plan antibiotics : tamiflu. iv vancomycin, levoquin A 1. enterobacter UTI 2. influenza B upper respiratory infection 3. + blood cultures with coag neg staph likely contaminated 4. renal failure improving 5. diabetes mellitus P 1. continue levoquin po 2 more days 2. d/c tamiflu, iv vancomycin 3. d/c patient home Subjective Constitutional: Denies: fever, chills Respiratory: Denies: shortness of breath Gastrointestinal/Abdominal: Denies: nausea, vomiting, diarrhea Musculoskeletal: Denies: pain Allergies: Coded Allergies: CODEINE (Unverified Allergy, Unknown, 07/20/14) Objective Vital Signs Last 24 Hour Vital Signs Date Time Temp Pulse Resp B/P (MAP) Pulse Ox O2 Delivery O2 Flow Rate FiO2 05/04/19 08:00 97.0 62 20 138/90 (106) 98 05/04/19 08:00 77 05/04/19 04:00 65 05/04/19 04:00 97.8 72 19 137/72 (93) 96 05/04/19 00:00 97.9 75 19 136/77 (96) 97 05/04/19 00:00 69 05/03/19 21:00 Room Air 05/03/19 20:00 97.7 71 17 141/71 (94) 96 05/03/19 16:00 97.8 74 17 119/78 (92) 96 05/03/19 16:00 66 05/03/19 12:00 97.9 70 18 150/97 (114) 97 05/03/19 12:00 95 Height (Feet): 5 Height (Inches): 7.00 Weight (Pounds): 280 Respiratory/Chest: lungs clear Cardiovascular: normal rate, regular rhythm, no gallop/murmur Abdomen: soft, non tender Extremities: no edema Laboratory Tests Test 05/03/19 21:22 Vancomycin Level Trough 10.0 ug/mL (5.0-12.0) Current Medications Medications (Trade) Dose Ordered Sig/Nikia Route PRN Reason Start Time Stop Time Status Last Admin Dose Admin Acetaminophen (Tylenol) 650 mg Q4H PRN ORAL Mild Pain/Temp > 100.5 04/30/19 23:15 05/30/19 23:14 Al Hydroxide/Mg Hydroxide (Mylanta) 30 ml Q4HR PRN ORAL Abdominal cramps 04/30/19 23:15 05/30/19 23:14 Dextrose (Dextrose 50%) 25 ml Q30M PRN IV Hypoglycemia 05/02/19 07:15 06/01/19 07:14 Dextrose (Dextrose 50%) 50 ml Q30M PRN IV Hypoglycemia 05/02/19 07:15 06/01/19 07:14 Insulin Aspart (NovoLOG) BEFORE MEALS AND HS SUBQ 05/02/19 07:30 06/01/19 07:29 05/04/19 06:25 Oseltamivir Phosphate (Tamiflu) 30 mg BID ORAL 05/01/19 18:00 05/06/19 17:59 05/04/19 08:43 Pantoprazole (Protonix) 40 mg ACBREAKFAST ORAL 05/01/19 06:30 05/31/19 06:29 05/04/19 06:22 Vancomycin HCl (Vanco rx to dose) 1 ea DAILY PRN MISC Per rx protocol 05/02/19 10:15 06/01/19 10:14 Vancomycin HCl 750 mg/Sodium Chloride 275 ml @ 183.333 mls/hr Q8H IVPB 05/03/19 23:00 05/08/19 22:59 05/04/19 06:22 César Aguilar MD May 04, 2019 10:15
[2019-05-04] MEDS ORDERED: LEVAQUIN500 MG ORAL (10:26)
--- NOTE | 2019-05-04 11:12 | NUR ---
Discharge: Patient is being discharged from medical care. Awake, alert and oriented x4. After care instructions, including discharge meds and list and discharge instruction were given. Patient verbalized understanding of After care instructions; at this time patient does not request medications, equipment or placement. Patient signed patient consent in the medical record for patient destination upon discharge. All medical devices such as monitor tech, IV and ID band were removed. Patient ambulated out with her daughter and RN all personal belongings with steady gait.
[2019-05-04] MEDS ORDERED: 1/2 NS 1000ml IV ONE (11:14)
--- NOTE | 2019-05-04 13:21 | NUR ---
*-* INSURANCE *-* ALL CLINICALS AND REVIEWS HAVE BEEN FAXED TO: [facility] [place] ref#[id number] CM: Jeri #[phone] ext [phone] fax#[phone]
--- NOTE | 2019-05-06 12:18 | Discharge Summary ---
Discharge Summary Discharge Summary _ DATE OF ADMISSION: 04/30/2019 DATE OF DISCHARGE: 05/04/2019 DISCHARGED BY: Dr. Green REASON FOR ADMISSION: 48 years old female with past medical history of diabetes mellitus, presented to emergency department complaining of generalized weakness , reduced energy and productive cough. Patient also reported chest pain with coughing and discomfort. Upon initial evaluation in emergency department patient was found to have evidence of leukopenia. Chest x-ray was essentially negative. BUN 37, creatinine 2.8. Glucose 339. Lactic acid 2.2. Stable LFT. Troponin 0.005. Urinalysis revealed pyuria and many bacteria, +3 protein , +4 glucose. Patient subsequently admitted for further management. CONSULTANTS: ID specialist Dr. Aguilar HOSPITAL COURSE: Patient admitted to telemetry floor. Patient started on IV hydration and empiric antibiotics as per ID specialist recommendation. Blood culture revealed Staph epidermidis. Urine culture revealed Enterobacter. Nasal swab for influenza was positive for influenza B . Patient was on IV antibiotic as per ID recommendation for UTI as well as Tamiflu . Patient was on isolation. Supplemental oxygen was on board as needed to keep pulse oximetry above 92%. Prior to discharge pulse oximetry stable on room air. Bronchodilator therapy via HHN provided as needed. Renal parameters and electrolytes were closely monitored, electrolytes corrected as needed. Nephrotoxic were avoided. Prior to discharge creatinine from 2.8 down to 1.7. Leukopenia was likely due to influenza. Blood culture with Staph epidermidis were likely contaminated , as per ID specialist. Blood sugar was managed with sliding scale of insulin . Blood pressure was closely monitored and managed with current regimen. GI prophylaxis provided. Supportive care provided. Patient clinically stabilized and was ready for discharge home. FINAL DIAGNOSES: Enterobacter UTI Influenza B upper respiratory infection Renal failure Diabetes mellitus Leukopenia, likely due to influenza DISCHARGE MEDICATIONS: See Medication Reconciliation list. DISCHARGE INSTRUCTIONS: Patient was discharged home. Follow-up with primary care provider in 1 week to recheck the renal function as well as the WBC. I have been assigned to dictate discharge summary for this account. I was not involved in the patient's management. Dagmar England NP May 06, 2019 12:18
--- NOTE | 2019-05-11 14:08 | Cardiology Report ---
APPROVED REPORT EKG Measurement Heart [id number] PA [id number] <Conclusion> Normal sinus rhythm Normal ECG
--- NOTE | 2019-05-11 16:15 | NUR ---
*-* INSURANCE *-* ALL CLINICALS AND REVIEWS HAVE BEEN FAXED TO: [facility] ref#[id number] CM: Jeri #[phone] ext [phone] fax#[phone]
== END 2019-05-04 11:15 | disposition home or self-care (01) | DRG 690 ==
LOC: EMR 16:58 → EDBEDREQ 17:36 → INTOOBSV 18:10 → OBSVTOIN 18:10 → 2E 18:10 → EDBEDREQ 18:14
DX: N39.0 Urinary tract infection, site not specified (principal); N17.9 Acute kidney failure, unspecified; E86.0 Dehydration; E78.5 Hyperlipidemia, unspecified; E11.9 Type 2 diabetes mellitus without complications; Z79.4 Long term (current) use of insulin; Z88.6 Allergy status to analgesic agent; J10.1 Influenza due to other identified influenza virus with other respiratory manifestations; B96.89 Other specified bacterial agents as the cause of diseases classified elsewhere
CPT/HCPCS: 36415; 71045; 80048; 80053; 80202; 81003; 82550; 82962; 83605; 84484; 85007; 85025; 86710; 87040; 87086; 87181; 93005; 96361; 96365; 99291; J1815; J7030

== ENCOUNTER 2019-07-21 02:22 | Emergency (ER) | payer OTHER ==
[~2019-07-21] VITALS: Ht 170.2 cm; Wt 130.2 kg
[~2019-07-21 02:22] MED LIST changes: +CEPHALEXIN500 MG ORAL; +LEVAQUIN500 MG ORAL; +NORCO 5-325 TA1 EACH ORAL
[2019-07-21 02:40] VITALS: BP 125/82
[2019-07-21] MEDS ORDERED: HYDROcodone/Acetamin 5/325 tab ORAL ONE (02:45)
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
--- NOTE | 2019-07-21 04:06 | Diagnostic Imaging Report ---
INDICATION: Abdominal pain TECHNIQUE: Continuous helical transaxial imaging of the abdomen and pelvis was obtained from the lung bases to the pubic symphysis. No intravenous contrast was administered. Coronal 2-D reformats were also obtained. Automatic Exposure Control was utilized. Total Dose length Product (DLP): 970.[address] Dose Index Volume (CTDIvol): 17.4 mGy Comparison: 06/14/2019 FINDINGS: Lungs: There is a 7 mm nodular density at the left lung base nonspecific. This was seen previously. The heart is enlarged. Small hiatal hernia noted.. Liver: Unremarkable Gallbladder/biliary system: Gallbladder is contracted. No obvious stones or biliary ductal dilatation are seen.. Spleen: Unremarkable Pancreas: Unremarkable Kidneys/Bladder: No definite stone or hydronephrosis are identified. The urinary bladder is unremarkable.. Adrenal glands: Unremarkable Bowel: Bowel gas pattern is nonobstructive. The appendix is normal. Evaluation limited by the nonadministration of oral contrast. Aorta/IVC: Unremarkable Peritoneum: There is no free fluid. Bones: There is narrowing of intervertebral discs and accompanying endplate osteophyte formation. Hypertrophied facet joints also demonstrated. IMPRESSION: No acute findings. 7 mm nodule at the left lung base nonspecific. Recommend follow-up at 6 months. Incidental findings as above Note: Evaluation of solid organs is limited on non contrast imaging. The CT scanner at [facility] is accredited by the [employer] and the scans are performed using dose optimization techniques as appropriate to a performed exam including Automatic Exposure control.
[2019-07-21] MEDS ORDERED: IBUPROFEN600 MG ORAL (04:12)
[2019-07-21] MEDS ORDERED: NORCO 5-325 TA1 EACH ORAL (04:12)
[2019-07-21 04:17] VITALS: BP 128/75
== END 2019-07-21 04:17 | disposition home or self-care (01) ==
LOC: EMR 02:46
DX: S30.1XXA Contusion of abdominal wall, initial encounter (principal); V43.62XA Car passenger injured in collision with other type car in traffic accident, initial encounter; Y92.410 Unspecified street and highway as the place of occurrence of the external cause; E11.9 Type 2 diabetes mellitus without complications; Z88.5 Allergy status to narcotic agent
CPT/HCPCS: 74176; 99284

== ENCOUNTER 2019-08-08 02:30 | Emergency (ER) | payer OTHER ==
[~2019-08-08] VITALS: Ht 170.2 cm; Wt 122.5 kg
--- NOTE | 2019-08-08 02:56 | Emergency Room Report ---
History of Present Illness General Chief Complaint: General Complaint Source: Patient Present Illness HPI Is a 49-year-old female with history of diabetes. She presents with chief complaint of right flank pain. Onset yesterday. Pain is sharp in nature. Pain is 8 out of 10. Worse with movement. Better with rest. No fever chills but no nausea no vomiting.. Him in the past when diagnosed with kidney infection. Denies any other trauma. No incontinence of bowel or urine. No anesthesia. COVID-19 risk:Contact w/high r: No COVID-19 risk:Travel to affect: No Has patient experienced sepulveda: No Allergies: Coded Allergies: CODEINE (Unverified Allergy, Unknown, 07/20/14) Patient History Past Medical History: see triage record, old chart reviewed, DM Past Surgical History: other Pertinent Family History: none Social History: Denies: smoking Last Menstrual Period: n/a Immunizations: other Reviewed Nursing Documentation: PMH: Agreed; PSxH: Agreed Nursing Documentation-PMH Past Medical History: No History, Except For Hx Diabetes: Yes Review of Systems Eye: Denies: eye pain, blurred vision ENT: Denies: ear pain, nose congestion, throat swelling Respiratory: Denies: cough, shortness of breath Cardiovascular: Denies: chest pain, palpitations Gastrointestinal: Denies: abdominal pain, diarrhea, nausea, vomiting Musculoskeletal: Denies: back pain, joint pain Skin: Denies: rash Neurological: Denies: headache, numbness Endocrine: Denies: increased thirst, increased urine Hematologic/Lymphatic: Denies: easy bruising All Other Systems: negative except mentioned in HPI Physical Exam Vital Signs Date Time Temp Pulse Resp B/P (MAP) Pulse Ox O2 Delivery O2 Flow Rate FiO2 08/08/19 02:37 97.7 86 18 133/84 (100) 96 Room Air Vitals unremarkable Sp02 EP Interpretation: reviewed, normal General Appearance: well appearing, no apparent distress, alert, obese Head: normocephalic, atraumatic Eyes: bilateral eye PERRL, bilateral eye EOMI ENT: hearing grossly normal, normal pharynx Neck: full range of motion, supple, no meningismus Respiratory: chest non-tender, lungs clear, normal breath sounds Cardiovascular #1: regular rate, rhythm, no murmur Gastrointestinal: normal bowel sounds, non tender, no mass, no organomegaly, no bruit, non-distended Genitourinary: CVA tenderness (R) Musculoskeletal: back normal, normal range of motion, gait/station normal Psychiatric: mood/affect normal Medical Decision Making Diagnostic Impression: Primary Impression: Back pain Qualified Codes: M54.5 - Low back pain ER Course This patient presents with back pain. No evidence of any infection. No evidence of cauda equina syndrome, spinal epidural abscess or neoplastic process. Will discharge home. Last Vital Signs Date Time Temp Pulse Resp B/P (MAP) Pulse Ox O2 Delivery O2 Flow Rate FiO2 08/08/19 02:37 97.7 86 18 133/84 (100) 96 Room Air Status: improved Disposition: HOME, SELF-CARE Condition: Stable Scripts Hydrocodone/Acetaminophen 5-325* (HYDROCODONE/ACETAMINOPHEN 5-325*) 1 Each Tablet 1 TAB ORAL Q6H PRN for For Pain, #20 TAB 0 Refills Prov: Erick Saxena MD 08/08/19 Additional Instructions: Follow with your doctor in 7 days. Return if symptoms worsen. Erick Saxena MD Aug 08, 2019 02:56
[2019-08-08] MEDS ORDERED: HYDROmorphone 1mg/ml Carpuject IVP ONE (03:00)
[2019-08-08 03:25] LABS: BASOPHILS % (AUTO) 1.5 % (0.0-2.0); EOSINOPHILS % (AUTO) 5.9 % (0.0-3.0); HEMATOCRIT 36.2 % (37.0-47.0); HEMOGLOBIN 12.6 G/DL (12.0-16.0); LYMPHOCYTES % (AUTO) 33.7 % (20.0-45.0); MEAN CORPUSCULAR VOLUME 87 FL (80-99); MONOCYTES % (AUTO) 4.8 % (1.0-10.0); NEUTROPHILS % (AUTO) 54.2 % (45.0-75.0); PLATELET COUNT 268 K/UL (150-450); RED BLOOD COUNT 4.15 M/UL (4.20-5.40); RED CELL DISTRIBUTION WIDTH 11.9 % (11.6-14.8); WHITE BLOOD COUNT 6.5 K/UL (4.8-10.8)
[2019-08-08 03:25] LABS: APPEARANCE,URINE CLEAR; BILIRUBIN, URINE NEGATIVE (NEGATIVE); COLOR,URINE PALE YELLOW; GLUCOSE, URINE (UA) 4+ (NEGATIVE); KETONES,URINE NEGATIVE (NEGATIVE); LEUKOCYTE ESTERASE ,URINE NEGATIVE (NEGATIVE); NITRITE,URINE NEGATIVE (NEGATIVE); PH,URINE 5 (4.5-8.0); PROTEIN,URINE NEGATIVE (NEGATIVE); UROBILINOGEN,URINE NORMAL MG/DL (0.0-1.0)
[2019-08-08 03:30] VITALS: BP 140/82
[2019-08-08 03:46] LABS: ANION GAP 10 mmol/L (5-15); BLOOD UREA NITROGEN 32 mg/dL (7-18); CALCIUM 9.2 MG/DL (8.5-10.1); CARBON DIOXIDE 27 MMOL/L (21-32); CHLORIDE 105 MMOL/L (98-107); CREATININE 1.4 MG/DL (0.55-1.30); POTASSIUM 4.4 MMOL/L (3.5-5.1); SODIUM 142 MMOL/L (136-145)
[2019-08-08 03:50] LABS: ALANINE AMINOTRANSFERASE 16 U/L (12-78); ALBUMIN 3.6 G/DL (3.4-5.0); ALBUMIN/GLOBULIN RATIO 0.8 (1.0-2.7); ALKALINE PHOSPHATASE 86 U/L (46-116); ASPARTATE AMINO TRANSFERASE 12 U/L (15-37); BILIRUBIN,TOTAL 0.3 MG/DL (0.2-1.0)
[2019-08-08] MEDS ORDERED: HYDROCODON-ACE1 EA15 ORAL (04:25)
[2019-08-08 04:40] VITALS: BP 129/79
[2019-08-08] MEDS ORDERED: Morphine Sulfate 4mg/ml Inj (IV USE ONLY) ONE (04:51)
[2019-08-08 05:00] VITALS: BP 140/82
[2019-08-08] MEDS ORDERED: Morphine Sulfate 2mg/ml Inj(IV/IM USE ONLY) IM ONE (05:00)
== END 2019-08-08 05:00 | disposition home or self-care (01) ==
LOC: EMR 03:30
DX: M54.5 Low back pain (principal); Z88.6 Allergy status to analgesic agent; E11.9 Type 2 diabetes mellitus without complications; E66.9 Obesity, unspecified; Z68.41 Body mass index [BMI] 40.0-44.9, adult
CPT/HCPCS: 36415; 80053; 81003; 83690; 85025; 96361; 96372; 96374; 96375; 99284; J1170; J2270; J2405; J7030

== ENCOUNTER 2020-06-13 11:33 | Emergency (ER) | payer OTHER ==
[~2020-06-13] VITALS: Ht 170.2 cm; Wt 127.0 kg
[2020-06-13] VITALS (8 sets, daily range): BP systolic 73–139; BP diastolic 39–91
[2020-06-13] MEDS ORDERED: IBUPROFEN600 M1 ORAL (11:46)
[2020-06-13] MEDS ORDERED: ZITHROMAX250 MG ORAL (11:46)
--- NOTE | 2020-06-13 12:41 | Emergency Room Report ---
History of Present Illness General Chief Complaint: Abdominal Pain Source: Patient (Breezy Kenney) Present Illness HPI 50-year-old female with history of gastric ulcer, diabetes, acute kidney injury/renal disease here complaining of few days of generalized abdominal pain especially epigastric area. Also complains of generalized weakness. Denies any cough or congestion, diarrhea, nausea vomiting. Reports that she has been bleeding however cannot distinguish whether she has been vaginally bleeding or rectally. Patient is morbidly obese. Complains of shortness of breath and generalized weakness. Has not taken medication for symptom relief. Patient is currently on potassium, losartan, Metformin, glyburide, simvastatin. Patient stating 93% upon arrival however patient reports that has not smoked cigarettes in her life and denies drug use history. Patient is also taking aspirin daily. (Breezy Kenney) Allergies: Coded Allergies: CODEINE (Unverified Allergy, Unknown, 07/20/14) COVID-19 Screening Contact w/high risk pt: No Recent Travel to affected area: No Experienced COVID-19 symptoms?: No COVID-19 Testing performed INTERVENTIONAL CARDIOLOGIST: No COVID-19 Screening: Negative COVID-19 COVID-19 Testing Source: [employer], 01/05 (Breezy Kenney) Patient History Past Medical History: see triage record Past Surgical History: none Pertinent Family History: none Now: No Immunizations: UTD Reviewed Nursing Documentation: PMH: Agreed; PSxH: Agreed (Breezy Kenney) Nursing Documentation-PMH Past Medical History: No History, Except For Hx Diabetes: Yes (Breezy Kenney) Review of Systems All Other Systems: negative except mentioned in HPI (Breezy Kenney) Physical Exam Vital Signs Date Time Temp Pulse Resp B/P (MAP) Pulse Ox O2 Delivery O2 Flow Rate FiO2 06/13/20 11:48 99.1 118 18 111/74 (86) 93 Room Air Sp02 EP Interpretation: reviewed, normal General Appearance: no apparent distress, alert, GCS 15, non-toxic Head: normocephalic, atraumatic Eyes: bilateral eye normal inspection, bilateral eye PERRL ENT: hearing grossly normal, normal pharynx, no angioedema, normal voice Neck: full range of motion, supple/symm/no masses Respiratory: no respiratory distress, no retraction, no accessory muscle use Cardiovascular #1: regular rate, rhythm, no edema Cardiovascular #2: 2+ carotid (R), 2+ carotid (L), 2+ radial (R), 2+ radial (L), 2+ dorsalis pedis (R), 2+ dorsalis pedis (L) Gastrointestinal: normal bowel sounds, non tender, soft, no organomegaly, no peritonitis, no bruit, non-distended, no guarding, no hernia, no rebound Rectal: deferred Genitourinary: no CVA tenderness Musculoskeletal: back normal, no calf tenderness Neurologic: alert, motor strength/tone normal, oriented x3, sensory intact, responsive, speech normal Psychiatric: judgement/insight normal, memory normal, mood/affect normal, no suicidal/homicidal ideation Skin: no rash Lymphatic: no adenopathy (Breezy Kenney) Medical Decision Making PA Attestation ALL Diagnosis and treatment plan reviewed and discussed with my supervising physician Dr. Nick (Breezy Kenney) Diagnostic Impression: Primary Impression: Pneumonia due to COVID-19 virus Additional Impressions: Fibroid Vaginal bleeding Trichomonal cystitis ER Course 50-year-old female with history of gastric ulcer, diabetes, acute kidney injury/renal disease here complaining of few days of generalized abdominal pain especially epigastric area. Also complains of generalized weakness. Denies any cough or congestion, diarrhea, nausea vomiting. Reports that she has been bleeding however cannot distinguish whether she has been vaginally bleeding or rectally. Patient is morbidly obese. Complains of shortness of breath and generalized weakness. Has not taken medication for symptom relief. Patient is currently on potassium, losartan, Metformin, glyburide, simvastatin. Patient stating 93% upon arrival however patient reports that has not smoked cigarettes in her life and denies drug use history. Patient is also taking aspirin daily. Ddx considered but are not limited to: appendicitis, cholecystis, gastritis, gastroenteritis, UTI, pyelonephritis, SBO, diverticulitis, influenza with GI manifestation, AR, Vital signs: are WNL, pt. is afebrile H&PE are most consistent with: vaginal bleeding, Covid PNA, uterine fibroid ORDERS: abdominal CT, abdominal pain set, EKG, abdominal US ED INTERVENTIONS: Morphine, Pepcid, Zofran, NS bolus, azithromycin, Rocephin, flagyl Patient was transferred to [facility] for admission with diagnosis of active vaginal bleeding due to uterine fibroids, pneumonia due to Kovic [address] Nassar under supervision of : Steve pt stable at time of admission (Breezy Kenney) ER Course Patient seen and evaluated by my PA. Discussed symptoms and work-up with me. I agree with her evaluation. Assessment and treatment plan. Patient will be admitted and transferred due to insurance (Presley Wilson MD) EKG Diagnostic Results Rate: tachycardiac Rhythm: other - Slightly tachycardic ST Segments: no acute changes Other Impression No acute ST changes ASA given to the pt in ED: No (Breezy Kenney) Chest X-Ray Diagnostic Results Chest X-Ray Diagnostic Results : Chest X-Ray Ordered: Yes # of Views/Limited/Complete: 1 View Indication: Chest Pain EP Interpretation: Yes PA Xray: Interpretation reviewed, by supervising MD, and agrees with findings. Interpretation: no effusion, no pneumothorax, other - Infiltrates right lower lobe Impression: Other - Pneumonia right lower lobe Electronically Signed by: Breezy Segura PA-C (Breezy Kenney) CT/MRI/US Diagnostic Results CT/MRI/US Diagnostic Results : Imaging Test Ordered: CT abd pelvis wo contrast Impression CHEST FINDINGS: Hazy groundglass infiltrates noted in the left upper lobe. Minimal subpleural densities noted posteriorly in the left midlung likely inflammatory as well. Cardiac and mediastinal structures are within normal limits. There are some borderline size lymph nodes in the mediastinum of undetermined significance. There is no effusion. Degenerative changes of the thoracic spine noted. ABDOMEN/PELVIS FINDINGS: The liver is homogeneous except for a focus of calcification posterior dome either calcified granuloma or a focus of capsular calcification. The spleen is homogeneous. Gallbladder is without sludge or stone and there is no wall thickening. The pancreas is unremarkable. Adrenals are normal in morphology. There are small low-density cysts in the kidneys. Small bowel loops are nondistended. The colon is also nondistended with average amount of stool. The appendix is normal. There is no free fluid or free air. No pathologic adenopathy demonstrated. Urinary bladder appears unremarkable. Uterus is midline with small myometrial calcification perhaps a fibroid. Right ovary also contains a focus of coarse calcification. No dominant adnexal mass seen. A few mildly prominent lymph nodes identified in the inguinal regions bilaterally of undetermined significance. There is severe degenerative changes of the lumbar spine. IMPRESSION: MILD HAZY INFILTRATES LEFT UPPER TO MIDLUNG. A FEW BORDERLINE SIZED LYMPH NODES IN THE MEDIASTINUM WELL IN BOTH INGUINAL REGIONS OF UNDETERMINED SIGNIFICANCE. HEPATIC GRANULOMA VERSUS FOCUS OF CAPSULAR CALCIFICATION. RENAL CYSTS. POSSIBLE SMALL UTERINE FIBROID. (Breezy Kenney) Last Vital Signs Date Time Temp Pulse Resp B/P (MAP) Pulse Ox O2 Delivery O2 Flow Rate FiO2 06/13/20 11:48 99.1 118 18 111/74 (86) 93 Room Air (Breezy Kenney) Status: improved (Presley Wilson MD) Disposition: SHORT-TERM HOSP Condition: Serious Scripts Ibuprofen* (MOTRIN*) 600 Mg Tablet 600 MG ORAL Q6H PRN for FOR PAIN, #20 TAB 0 Refills Prov: Kadne Nick M.D. 06/13/20 Azithromycin* (ZITHROMAX*) 250 Mg Tablet 250 MG ORAL DAILY, #6 TAB 0 Refills Take two tables once daily for 1 day, then one tablet once daily for 4 days. Prov: Kaden Nick M.D. 06/13/20 Referrals: [facility] Breezy Kenney Jun 13, 2020 12:41 Presley Wilson MD Jun 13, 2020 20:38
[2020-06-13 13:20] LABS: BASOPHILS % (AUTO) 1.1 % (0.0-2.0); EOSINOPHILS % (AUTO) 1.2 % (0.0-3.0); HEMATOCRIT 45.5 % (37.0-47.0); HEMOGLOBIN 14.1 G/DL (12.0-16.0); LYMPHOCYTES % (AUTO) 27.2 % (20.0-45.0); MEAN CORPUSCULAR VOLUME 92 FL (80-99); MONOCYTES % (AUTO) 6.2 % (1.0-10.0); NEUTROPHILS % (AUTO) 64.3 % (45.0-75.0); PLATELET COUNT 190 K/UL (150-450); RED BLOOD COUNT 4.94 M/UL (4.20-5.40); RED CELL DISTRIBUTION WIDTH 12.6 % (11.6-14.8); WHITE BLOOD COUNT 4.1 K/UL (4.8-10.8)
[2020-06-13 13:31] LABS: BILIRUBIN, URINE NEGATIVE (NEGATIVE); COLOR,URINE PALE YELLOW; GLUCOSE, URINE (UA) 4+ (NEGATIVE); KETONES,URINE NEGATIVE (NEGATIVE); LEUKOCYTE ESTERASE ,URINE 3+ (NEGATIVE); NITRITE,URINE NEGATIVE (NEGATIVE); PH,URINE 5 (4.5-8.0); PROTEIN,URINE NEGATIVE (NEGATIVE); UROBILINOGEN,URINE NORMAL MG/DL (0.0-1.0)
[2020-06-13 13:32] LABS: APPEARANCE,URINE SLIGHTLY CLOUDY
--- NOTE | 2020-06-13 13:32 | Diagnostic Imaging Report ---
Procedure: XRAY Chest 1v Reason for study: Cough Comparison films: 04/30/2019. FINDINGS: A single one view chest is obtained. Vascularity is normal. The lung marquez are clear bilaterally. Cardiac and mediastinal silhouette are within normal limits. CP angles are sharp. The bony thorax appear unremarkable. IMPRESSION: NO ACUTE CARDIOPULMONARY DISEASE.
[2020-06-13 13:47] LABS: CALCIUM 8.8 MG/DL (8.5-10.1); CREATININE 1.9 MG/DL (0.55-1.30); POTASSIUM 4.3 MMOL/L (3.5-5.1)
[2020-06-13 13:51] LABS: ALBUMIN 3.3 G/DL (3.4-5.0); ALBUMIN/GLOBULIN RATIO 0.6 (1.0-2.7); BILIRUBIN,TOTAL 0.6 MG/DL (0.2-1.0)
--- NOTE | 2020-06-13 13:55 | NUR ---
ED Nurse Note: Patient awake and talkative with family on the cellualr phone, she is responsive to questions with coherent and consice answers, patient en route to CT scan.
[2020-06-13] MEDS ORDERED: Morphine Sulfate 2mg/ml Inj(IV/IM USE ONLY) IVP ONE (14:00)
[2020-06-13] MEDS ORDERED: cefTRIAXone 1 GM in NS 55 ML IVPB ONE (14:00)
--- NOTE | 2020-06-13 14:37 | NUR ---
ED Nurse Note: US @ bedside
--- NOTE | 2020-06-13 15:17 | Diagnostic Imaging Report ---
EXAM: CT CT Chest Abdomen Pelvis wo Con INDICATION: Chest and abdominal pain. Generalized weakness. Rectal versus vaginal bleeding. Shortness of breath. COMPARISON: None TECHNIQUE: Axial images were obtained through the chest, abdomen and pelvis without intravenous contrast. Sagittal and coronal reformats are generated. All CT scans at this facility are performed using dose modulation techniques as appropriate to a performed exam including the following: automated exposure control with adjustment of the mA and/or kV according to patient size. RADIATION DOSE: CTDIvol: 17.4 mGy DLP: 970.3 mGy-cm Dose information generated by the CT scanner is available in PACS. CHEST FINDINGS: Hazy groundglass infiltrates noted in the left upper lobe. Minimal subpleural densities noted posteriorly in the left midlung likely inflammatory as well. Cardiac and mediastinal structures are within normal limits. There are some borderline size lymph nodes in the mediastinum of undetermined significance. There is no effusion. Degenerative changes of the thoracic spine noted. ABDOMEN/PELVIS FINDINGS: The liver is homogeneous except for a focus of calcification posterior dome either calcified granuloma or a focus of capsular calcification. The spleen is homogeneous. Gallbladder is without sludge or stone and there is no wall thickening. The pancreas is unremarkable. Adrenals are normal in morphology. There are small low-density cysts in the kidneys. Small bowel loops are nondistended. The colon is also nondistended with average amount of stool. The appendix is normal. There is no free fluid or free air. No pathologic adenopathy demonstrated. Urinary bladder appears unremarkable. Uterus is midline with small myometrial calcification perhaps a fibroid. Right ovary also contains a focus of coarse calcification. No dominant adnexal mass seen. A few mildly prominent lymph nodes identified in the inguinal regions bilaterally of undetermined significance. There is severe degenerative changes of the lumbar spine. IMPRESSION: MILD HAZY INFILTRATES LEFT UPPER TO MIDLUNG. A FEW BORDERLINE SIZED LYMPH NODES IN THE MEDIASTINUM WELL IN BOTH INGUINAL REGIONS OF UNDETERMINED SIGNIFICANCE. HEPATIC GRANULOMA VERSUS FOCUS OF CAPSULAR CALCIFICATION. RENAL CYSTS. POSSIBLE SMALL UTERINE FIBROID.
--- NOTE | 2020-06-13 15:19 | NUR ---
ED Nurse Note: Pain assessed after morphine 2mg was adminsitered, pain reassessed to be 5/10 with vital signs of 105/69, herat rate is 88, and saturations at 97%. Dr. Wilson at the bedside and infromed of the preliminary results of the transvaginal ultrasound
[2020-06-13] MEDS ORDERED: Azithromycin 500 MG in NS 275 ML IV ONE (15:45)
[2020-06-13] MEDS ORDERED: metroNIDAZOLE 500mg tab ORAL ONE (15:45)
--- NOTE | 2020-06-13 16:27 | NUR ---
patient signed consent for transfer to [facility]
--- NOTE | 2020-06-13 17:21 | Diagnostic Imaging Report ---
EXAM: US Retroperitoneal Limited, Renal CLINICAL HISTORY: PAIN TECHNIQUE: Real-time limited ultrasound of the retroperitoneum with image documentation. COMPARISON: Same-day CT chest abdomen and pelvis FINDINGS: Right kidney: No hydroureteronephrosis. Bilateral benign renal cysts requiring no additional follow-up, maximally 2 cm. Otherwise unremarkable kidneys. Right kidney 10.3cm. No stones. Left kidney: Left kidney 11.9 cm Bladder: Nonvisualized ureteral jets, which is of uncertain significance in the absence of collecting system dilation, and is probably incidental. Other findings: Postvoid residual cannot be evaluated due to patient not needing to void. IMPRESSION: 1. No acute abnormality definitively identified to account for patient presentation. 2. No hydroureteronephrosis. 3. Nonvisualized ureteral jets, which is of uncertain significance in the absence of collecting system dilation, and is probably incidental. 4. Postvoid residual cannot be evaluated due to patient not needing to void.
--- NOTE | 2020-06-13 17:55 | NUR ---
ED Nurse Note: Called [facility] and gave report to bettie mejia, patient is awake and talktaive, she is currently using her cellular phone to call family members and friends.
--- NOTE | 2020-06-13 19:09 | NUR ---
ED Nurse Note: Recived care from [facility]
--- NOTE | 2020-06-13 19:15 | NUR ---
HAND-OFF: Report given to MAYURI Rodriguez.
--- NOTE | 2020-06-13 20:09 | Diagnostic Imaging Report ---
EXAM: US Pelvis Transabdominal and Transvaginal, Complete CLINICAL HISTORY: PAIN TECHNIQUE: Real-time complete transabdominal and transvaginal pelvic ultrasound with image documentation. Transvaginal imaging was used for better evaluation of the endometrium and adnexa. COMPARISON: Same-day CT abdomen and pelvis. FINDINGS: Uterus/cervix: Uterine heterogeneity could represent fibroid uterus. Endometrium 0.6-1.1 cm. Probably calcified uterine fibroids or uterine parenchymal calcifications. Benign nabothian cysts. Uterus 5 x 4 x 4 cm Right ovary: Patient body habitus precludes visualization of the ovaries. Normal blood flow. Left ovary: See above. Free fluid: No free fluid. Bladder: Unremarkable as visualized. Wall is normal thickness for degree of distention. Other findings: Presumably, this patient is postmenopausal. No acute abnormality seen. IMPRESSION: 1. Patient body habitus precludes visualization of the ovaries. 2. Presumably, this patient is postmenopausal. 3. No acute abnormality seen. 4. Given endometrial prominent size and vaginal bleeding, recommend gynecology consultation for endometrial biopsy to exclude endometrial neoplasm. 5. Uterine heterogeneity could represent fibroid uterus.
--- NOTE | 2020-06-13 20:48 | NUR ---
ED Nurse Note: Pt is resting comfortably, she asked to use the commode, she is able to speak in full sentances, breathign is even and unlabored, pt is showing no signs of distress.
--- NOTE | 2020-06-13 23:24 | NUR ---
ER DISCHARGE NOTE: Patient is cleared to be discharged to outside hospital per ERMD, pt is aox4, on room air, with stable vital signs. ambulance personel was given dc and prescription instructions, pt was able to verbalize understanding, pt id band removed without complications. pt is able to ambulate with steady gait. pt took all belongings. Pt left on gurney with ALS transport. Pt on a monitor, Paramedics verbalized understanding.
== END 2020-06-13 21:10 | disposition short-term general hospital (02) ==
LOC: EMR 12:45 → EDBEDREQ 15:37 → EMR 21:10
DX: U07.1 COVID-19 (principal); J12.82 Pneumonia due to coronavirus disease 2019; R10.84 Generalized abdominal pain; R53.1 Weakness; D25.9 Leiomyoma of uterus, unspecified; N93.9 Abnormal uterine and vaginal bleeding, unspecified; A59.03 Trichomonal cystitis and urethritis; E11.9 Type 2 diabetes mellitus without complications; Z79.82 Long term (current) use of aspirin; N28.1 Cyst of kidney, acquired; Z88.5 Allergy status to narcotic agent
CPT/HCPCS: 36415; 71045; 71250; 74176; 76770; 76830; 76856; 80053; 81003; 81025; 83605; 83690; 84484; 85025; 85379; 87086; 93005; 96361; 96365; 96367; 96375; 99284; J0456; J0696; J2270; J2405; J7030; J7050; S0028